=== PATIENT | female | born 1995 | race Caucasian/White ===

== ENCOUNTER 2021-12-01 21:42 | Inpatient (IN) | payer BC ==
[2021-12-01 22:05] VITALS: BMI 29.5
[2021-12-01] MEDS ORDERED: Ibuprofen 800 MG TAB PO PRN (23:09)
[2021-12-01] MEDS ORDERED: Lidocaine 1% (PF) 30 ML VIAL SC PRN (23:09)
[2021-12-01] MEDS ORDERED: Ondansetron PF 4 MG/2 ML Vial IVP PRN (23:09)
[2021-12-01] MEDS ORDERED: hydrALAZINE 20 MG/ML VIAL SLOW IVP PRN (23:09)
[2021-12-01] MEDS ORDERED: HYDROcodone/Acetaminophen 5/325 mg Tablet PO PRN ×2 (23:09)
[2021-12-01] MEDS ORDERED: Promethazine HCl 25 MG/ML VIAL IM PRN (23:09)
[2021-12-01] MEDS ORDERED: Butorphanol Tartrate 1 MG/ML VIAL SLOW IVP PRN (23:09)
[2021-12-01] MEDS ORDERED: Lactated Ringer's 1,000 ML IV SCH (23:15)
[2021-12-01] MEDS ORDERED: NS w/ Oxytocin 30 units 500 ML IV SCH (23:15)
[2021-12-01 23:40] LABS: Hemoglobin 11.9 g/dL (12.0-15.5); Mean Corpuscular HGB CONC 33.7 g/dL (32.0-36.0); Mean Corpuscular Hemoglobin 32.1 pg (27.0-33.0); Mean Corpuscular Volume 95.1 fl (81.6-98.3); Mean Platelet Volume 10.8 fl (7.4-10.4); Platelet Count 201 10x3/uL (150-450); RBC Distribution Width 12.9 % (11.5-14.5); Red Blood Cell (RBC) Count 3.71 10x6/uL (3.90-5.03); White Blood Cell (WBC) Count 10.4 10x3/uL (3.5-10.5)
[2021-12-02] MEDS ORDERED: Fentanyl 2 mcg/Bup 0.1% Cadd 100 ML ONE (00:08)
[2021-12-02 00:18] LABS: Hep B Surf Ag Non-Reactive S/CO (NonReactive); Syphilis Antibody Nonreactive (Nonreactive); Syphilis Antibody Index 0.02 S/CO (<1.00 Non-Reactive)
[2021-12-02 00:23] LABS: HBSAg Index 0.16 S/CO (0-0.99)
[2021-12-02] MEDS ORDERED: Hydrocerin (Eucerin) Cream 120 gm Jar TOP PRN (01:06)
[2021-12-02] MEDS ORDERED: diphenhydrAMINE 50 MG/ML VIAL IVP PRN (01:06)
[2021-12-02] MEDS ORDERED: ePHEDrine Sulfate 50 MG/10 ML VIAL SLOW IVP PRN (01:06)
[2021-12-02] MEDS ORDERED: Promethazine HCl 25 MG/ML VIAL IM PRN (01:06)
[2021-12-02] MEDS ORDERED: Acetaminophen 325 MG TAB PO PRN (01:06)
[2021-12-02] MEDS ORDERED: Lactated Ringer's 500 ML IV PRN (01:06)
[2021-12-02] MEDS ORDERED: Naloxone HCl 0.4 mg/ml Vial IVP PRN ×2 (01:06)
[2021-12-02] MEDS ORDERED: Ondansetron PF 4 MG/2 ML Vial IVP PRN ×2 (01:06→21:06)
[2021-12-02] MEDS ORDERED: Communication Order-Pharmacy FS SCH (01:15)
[2021-12-02 02:21] LABS: SARS-CoV-2 NAA Rapid Test Not Detected (NotDetected)
[2021-12-02] MEDS: Fentanyl 2 mcg/Bupivacaine 0.1% Cassette 100 ML EPIDURAL SCH ×2 (07:30→13:14)
[2021-12-02] MEDS: Lactated Ringer's 1,000 ML IV SCH (11:28)
[2021-12-02] MEDS ORDERED: NS w/ Oxytocin 30 units 500 ML IV SCH ×2 (13:45→22:00)
[2021-12-02] MEDS ORDERED: Fentanyl 100 MCG/2 ML VIAL ONE (15:03)
[2021-12-02] MEDS ORDERED: Lidocaine 2% MPF 10 ML AMP (For Epidural Use) ONE (15:03)
[2021-12-02] MEDS ORDERED: Phenylephrine 40 MG/NS 250 ML 250 ML ONE (15:24)
[2021-12-02] MEDS: Ampicillin 2 GM in Sodium Chloride 0.9% 100 ML IVPB SCH (19:25)
[2021-12-02] MEDS ORDERED: Silver Nitrate Application 1 EACH ONE (19:51)
[2021-12-02] MEDS: Gentamicin 320 MG, Admixture Fee 1 EACH in Sodium Chloride 0.9% 100 ML IVPB SCH (20:46)
[2021-12-02] MEDS ORDERED: Methylergonovine 0.2 MG/ML VIAL IM PRN (21:06)
[2021-12-02] MEDS ORDERED: Lanolin Ointment 7 GM TUBE TOP PRN (21:06)
[2021-12-02] MEDS ORDERED: HYDROcodone/Acetaminophen 5/325 mg Tablet PO PRN (21:06)
[2021-12-02] MEDS ORDERED: Boostrix 0.5 ML (Tdap) VIAL IM ONE (21:06)
[2021-12-02] MEDS ORDERED: Misoprostol 200 MCG TAB VAG PRN (21:06)
[2021-12-02] MEDS ORDERED: Bisacodyl 10 MG SUPP PR PRN (21:06)
[2021-12-02] MEDS ORDERED: Benzocaine-Menthol 82.5 ML CAN TOP PRN (21:06)
[2021-12-02] MEDS ORDERED: Milk Of Magnesia 30 ML UDCUP PO PRN (21:06)
[2021-12-02] MEDS ORDERED: Docusate 100 MG CAP PO SCH (21:30)
[2021-12-02] MEDS ORDERED: Ferrous Sulfate 325 MG TAB PO SCH (21:30)
[2021-12-02] MEDS: hydrALAZINE 20 MG/ML VIAL SLOW IVP PRN ×2 (21:49→22:15)
[2021-12-02] MEDS ORDERED: Ibuprofen 800 MG TAB PO SCH (22:00)
[2021-12-02] MEDS ORDERED: AMPicillin 2 GM in Dextrose 5% in Water 100 ML IVPB SCH (22:00)
[2021-12-02] MEDS: HYDROcodone/Acetaminophen 5/325 mg Tablet PO PRN (22:02)
[2021-12-02] MEDS: Magnesium Sulfate 20 gm/500 ml 20 GM/500 ML BAG ONE (22:23)
[2021-12-02] MEDS ORDERED: Labetalol HCl 100 MG/20 ML VIAL ONE (22:34)
[2021-12-02 23:45] LABS: #Basophils 0.1 10x3/uL (0.0-0.2); #Monocytes 1.2 10x3/uL (0.0-1.1); #Neutrophils 10.7 10x3/uL (1.5-8.4); %Basophils 0.4 % (0.0-2.0); %Eosinophils 0.3 % (0.0-6.0); %Lymphocytes 11.3 % (18.0-47.0); %Monocytes 8.6 % (0.0-10.0); Hemoglobin 11.7 g/dL (12.0-15.5); Mean Corpuscular HGB CONC 34.1 g/dL (32.0-36.0); Mean Corpuscular Hemoglobin 32.7 pg (27.0-33.0); Mean Corpuscular Volume 95.8 fl (81.6-98.3); Mean Platelet Volume 10.3 fl (7.4-10.4); Platelet Count 202 10x3/uL (150-450); Red Blood Cell (RBC) Count 3.58 10x6/uL (3.90-5.03); White Blood Cell (WBC) Count 13.5 10x3/uL (3.5-10.5)
[2021-12-02 23:57] LABS: ALT (SGPT) 10 U/L (8-55); AST (SGOT) 35 U/L (5-34); Albumin 2.9 g/dL (3.5-5.0); Alkaline Phosphatase 112 U/L (40-110); Anion Gap 11 mmol/L (10-20); BUN (Urea Nitrogen) 11 mg/dL (7.0-18.7); Bilirubin, Total 0.4 mg/dL (0.2-1.2); Calc. Creatinine Clearance 149 mL/min (70-130); Calcium 8.7 mg/dL (7.8-10.44); Carbon Dioxide 22 mmol/L (22-29); Chloride 105 mmol/L (98-107); Globulin 2.6 g/dL (2.4-3.5); Glucose 88 mg/dL (70-105); Potassium 3.8 mmol/L (3.5-5.1); Protein, Total 5.5 g/dL (6.0-8.3); Sodium 134 mmol/L (136-145)
[2021-12-03] MEDS: Ibuprofen 800 MG TAB PO SCH ×3 (00:53→16:31)
[2021-12-03] MEDS: Ampicillin 2 GM in Sodium Chloride 0.9% 100 ML IVPB SCH ×3 (03:06→22:42)
[2021-12-03] MEDS ORDERED: Magnesium Sulfate 20 gm/500 ml 20 GM/500 ML BAG ONE ×2 (06:23→16:29)
[2021-12-03 06:24] LABS: Magnesium 4.7 mg/dL (1.6-2.6)
[2021-12-03] MEDS ORDERED: Prenatal Vitamin 1 TAB PO SCH (09:00)
[2021-12-03] MEDS ORDERED: Docusate 100 MG CAP PO SCH (09:00)
[2021-12-03] MEDS ORDERED: NIFEdipine XL 30 MG TAB PO SCH (09:45)
[2021-12-03] MEDS: HYDROcodone/Acetaminophen 5/325 mg Tablet PO PRN ×2 (10:05→15:11)
[2021-12-03] MEDS: NIFEdipine XL 30 MG TAB PO SCH (10:06)
[2021-12-03 15:08] LABS: Magnesium 5.2 mg/dL (1.6-2.6)
[2021-12-03] MEDS: Magnesium Sulfate 20 gm/500 ml 20 GM/500 ML BAG ONE (16:31)
[2021-12-03 16:37] LABS: Anion Gap 10 mmol/L (10-20); BUN (Urea Nitrogen) 8 mg/dL (7.0-18.7); Calc. Creatinine Clearance 139 mL/min (70-130); Calcium 8.1 mg/dL (7.8-10.44); Carbon Dioxide 26 mmol/L (22-29); Chloride 106 mmol/L (98-107); Glucose 101 mg/dL (70-105); Potassium 3.9 mmol/L (3.5-5.1); Sodium 138 mmol/L (136-145)
[2021-12-03] MEDS ORDERED: Calcium Gluc 4.6 MEQ/10 ML (100 MG/ML) IV PRN (16:44)
[2021-12-03] MEDS ORDERED: Magnesium Sulfate 20 gm/500 ml 20 GM/500 ML BAG IVPB PRN (16:45)
[2021-12-03] MEDS ORDERED: Magnesium Sulfate 20 gm/500 ml 4 GM/100 ML BAG IVPB ONE (16:45)
[2021-12-03] MEDS: Ferrous Sulfate 325 MG TAB PO SCH (20:43)
[2021-12-03] MEDS ORDERED: Ondansetron PF 4 MG/2 ML Vial IVP PRN (20:46)
[2021-12-03] MEDS ORDERED: Boostrix 0.5 ML (Tdap) VIAL IM ONE (20:46)
[2021-12-03] MEDS ORDERED: hydrALAZINE 20 MG/ML VIAL SLOW IVP PRN (20:46)
[2021-12-03] MEDS ORDERED: HYDROcodone/Acetaminophen 5/325 mg Tablet PO PRN ×2 (20:46)
[2021-12-03] MEDS ORDERED: Milk Of Magnesia 30 ML UDCUP PO PRN (20:46)
[2021-12-03] MEDS ORDERED: Lanolin Ointment 7 GM TUBE TOP PRN (20:46)
[2021-12-03] MEDS ORDERED: Bisacodyl 10 MG SUPP PR PRN (20:46)
[2021-12-03] MEDS ORDERED: Benzocaine-Menthol 82.5 ML CAN TOP PRN (20:46)
[2021-12-03] MEDS ORDERED: Ferrous Sulfate 325 MG TAB PO SCH (21:15)
[2021-12-03] MEDS: Docusate 100 MG CAP PO SCH (22:41)
[2021-12-03] MEDS: Gentamicin 320 MG, Admixture Fee 1 EACH in Sodium Chloride 0.9% 100 ML IVPB SCH (22:42)
[2021-12-03] MEDS: Lactated Ringer's 1,000 ML IV SCH (22:52)
[2021-12-04] MEDS: Ibuprofen 800 MG TAB PO SCH ×3 (00:16→17:03)
[2021-12-04] MEDS ORDERED: Bupivacaine/Epinephrine 0.25% 30 ML VIAL ONE (08:00)
[2021-12-04] MEDS ORDERED: Bupivacaine 0.25% HCL 30 ML VIAL ONE (08:00)
[2021-12-04] MEDS: Ferrous Sulfate 325 MG TAB PO SCH ×2 (08:33→16:39)
[2021-12-04] MEDS: Docusate 100 MG CAP PO SCH ×2 (08:35→21:04)
[2021-12-04] MEDS: NIFEdipine XL 30 MG TAB PO SCH (08:35)
[2021-12-04] MEDS: Prenatal Vitamin 1 TAB PO SCH (08:44)
[2021-12-04] MEDS ORDERED: NIFEdipine XL 30 MG TAB PO SCH (16:30)
[2021-12-04] MEDS ORDERED: Acetaminophen 500 MG TAB PO PRN (17:01)
[2021-12-05] MEDS: Ibuprofen 800 MG TAB PO SCH ×2 (00:13→08:57)
[2021-12-05] MEDS: Docusate 100 MG CAP PO SCH (08:57)
[2021-12-05] MEDS: Ferrous Sulfate 325 MG TAB PO SCH (08:57)
[2021-12-05] MEDS: Prenatal Vitamin 1 TAB PO SCH (08:58)
[2021-12-05] MEDS ORDERED: NIFEdipine XL 60 MG TAB PO SCH (09:00)
[2021-12-05 11:49] VITALS: BP 138/82; TEMP 97.8
== END 2021-12-05 14:30 | disposition home or self-care (01) | DRG 805 ==
LOC: CSHLD/OP 21:42 → CSHLD 23:11 → CSHPP 12-02 21:20 → CSHLD 12-02 23:09 → CSHPP 12-03 21:50
PROVIDERS: ADMIT Student in an Organized Health Care Education/Training Program; ATTEND Student in an Organized Health Care Education/Training Program
PROC: 10E0XZZ Delivery of Products of Conception, External Approach (ICD-10-PCS; principal; 2021-12-02)
PROC: 0HQ9XZZ Repair Perineum Skin, External Approach (ICD-10-PCS; 2021-12-02)
DX: O14.95 Unspecified pre-eclampsia, complicating the puerperium (principal); O41.1230 Chorioamnionitis, third trimester, not applicable or unspecified; Z37.0 Single live birth; Z3A.39 39 weeks gestation of pregnancy; Z20.822 Contact with and (suspected) exposure to COVID-19; O70.0 First degree perineal laceration during delivery
CPT/HCPCS: 36415; 51702; 80048; 80053; 83735; 85025; 85027; 86780; 86850; 86900; 86901; 87340; 99285; J0290; J0360; J0595; J1580; J2590; J3010; J3475; J3490; J7120; S0020; U0002

== ENCOUNTER 2021-12-06 16:30 | Inpatient (IN) | payer BC ==
[2021-12-06] MEDS ORDERED: Labetalol HCl 100 MG/20 ML VIAL ONE (17:05)
[2021-12-06] MEDS ORDERED: Magnesium 2 GM/50 ML BAG (IN WATER) ONE (17:06)
[2021-12-06 17:14] LABS: #Basophils 0.1 10x3/uL (0.0-0.2); #Eosinphils 0.4 10x3/uL (0.0-0.5); #Monocytes 0.6 10x3/uL (0.0-1.1); #Neutrophils 5.8 10x3/uL (1.5-8.4); %Eosinophils 4.3 % (0.0-6.0); %Lymphocytes 22.6 % (18.0-47.0); %Monocytes 6.9 % (0.0-10.0); %Neutrophils 64.8 % (40.0-75.0); Hemoglobin 12.7 g/dL (12.0-15.5); Mean Corpuscular HGB CONC 33.9 g/dL (32.0-36.0); Mean Corpuscular Hemoglobin 32.3 pg (27.0-33.0); Mean Corpuscular Volume 95.4 fl (81.6-98.3); Platelet Count 345 10x3/uL (150-450); RBC Distribution Width 12.8 % (11.5-14.5); Red Blood Cell (RBC) Count 3.93 10x6/uL (3.90-5.03)
[2021-12-06 17:27] LABS: ALT (SGPT) 21 U/L (8-55); AST (SGOT) 32 U/L (5-34); Albumin 4.2 g/dL (3.5-5.0); Alkaline Phosphatase 125 U/L (40-110); Anion Gap 15 mmol/L (10-20); BUN (Urea Nitrogen) 15 mg/dL (7.0-18.7); Bilirubin, Total 0.8 mg/dL (0.2-1.2); Calc. Creatinine Clearance 0 mL/min (70-130); Carbon Dioxide 20 mmol/L (22-29); Chloride 106 mmol/L (98-107); Globulin 2.8 g/dL (2.4-3.5); Glucose 75 mg/dL (70-105); INR-International Normal Ratio 0.9; PTT 26.6 sec (22.0-33.0); Potassium 4.1 mmol/L (3.5-5.1); Prothrombin Time 10.1 sec (9.5-12.1); Sodium 137 mmol/L (136-145)
[2021-12-06] MEDS ORDERED: Ondansetron PF 4 MG/2 ML Vial IVP PRN (18:17)
[2021-12-06] MEDS ORDERED: Ondansetron ODT 4 MG TAB PO PRN (18:17)
[2021-12-06] MEDS: Magnesium Sulfate 20 gm/500 ml 20 GM/500 ML BAG IVPB SCH (19:07)
[2021-12-06] MEDS: Lactated Ringer's 1,000 ML IV SCH (19:07)
[2021-12-06] MEDS ORDERED: hydrALAZINE 20 MG/ML VIAL SLOW IVP PRN ×2 (19:12)
[2021-12-06] MEDS ORDERED: Calcium Gluc 4.6 MEQ/10 ML (100 MG/ML) SLOW IVP PRN (19:12)
[2021-12-06] MEDS ORDERED: Labetalol HCl 100 MG/20 ML VIAL SLOW IVP PRN ×2 (19:12)
[2021-12-06] MEDS: Labetalol HCl 100 MG TAB PO SCH (21:35)
[2021-12-06 21:44] VITALS: BMI 24.0
[2021-12-07] MEDS: Magnesium Sulfate 20 gm/500 ml 20 GM/500 ML BAG IVPB SCH (06:58)
[2021-12-07] MEDS: Lactated Ringer's 1,000 ML IV SCH ×2 (08:22→22:15)
[2021-12-07] MEDS: Labetalol HCl 100 MG TAB PO SCH ×2 (09:09→21:17)
[2021-12-07] MEDS: NIFEdipine XL 60 MG TAB PO SCH (09:10)
[2021-12-07] MEDS: Acetaminophen 325 MG TAB PO PRN ×2 (15:56→21:18)
[2021-12-08] MEDS: Labetalol HCl 100 MG TAB PO SCH (08:36)
[2021-12-08] MEDS: NIFEdipine XL 60 MG TAB PO SCH (08:36)
[2021-12-08] MEDS ORDERED: Docusate 100 MG CAP PO SCH (09:00)
[2021-12-08 16:21] VITALS: BP 131/80; TEMP 99.2
== END 2021-12-08 18:40 | disposition home or self-care (01) | DRG 776 ==
LOC: CSHERS 16:30 → CSHLD 21:27 → CSHPP 12-07 19:35
PROVIDERS: ADMIT Student in an Organized Health Care Education/Training Program; ATTEND Student in an Organized Health Care Education/Training Program
DX: O14.95 Unspecified pre-eclampsia, complicating the puerperium (principal); F32.A Depression, unspecified; F41.9 Anxiety disorder, unspecified; O99.345 Other mental disorders complicating the puerperium; Z79.899 Other long term (current) drug therapy
CPT/HCPCS: 80053; 84484; 85025; 85610; 85730; 93005; 96365; 96375; J0360; J3475; J7120